=== PATIENT | male | born 1950 | race Caucasian/White ===

== ENCOUNTER → 2018-11-21 | Outpatient (CLI) | payer MEDICARE, OTHER | LOC: COL.RAD 08:15 | DX: M47.813 Spondylosis without myelopathy or radiculopathy, cervicothoracic region (principal); M51.24 Other intervertebral disc displacement, thoracic region; M50.33 Other cervical disc degeneration, cervicothoracic region; M85.68 Other cyst of bone, other site; M43.13 Spondylolisthesis, cervicothoracic region; Z98.1 Arthrodesis status; M48.03 Spinal stenosis, cervicothoracic region ==